=== PATIENT | male | born 1955 | race Caucasian/White ===

== ENCOUNTER 2017-05-13 02:31 | Emergency (ER) | payer MEDICAID ==
[2017-05-13] MEDS ORDERED: Ibuprofen TAB* 800 MG PO ONE (03:42)
[2017-05-13] MEDS ORDERED: Clindamycin CAP* 150 MG PO ONE (03:42)
[2017-05-13 04:09] VITALS: BP 157/91
--- NOTE | 2017-05-28 05:40 | ED ---
Gume Carroll Tecjoon scribed for Tye Malone MD on 05/13/17 at 0342 . Lower Extremity - HPI Summary HPI Summary: This patient is a 61 year old male presenting to [facility] with a chief complaint of right knee pain since yesterday. Patient states that he accidentally stuck his knee with a maggie nail. Patient comes to the ED because he feels that it isn t getting better. The pain is rated 5/10 in severity. Symptoms aggravated by nothing. Symptoms alleviated by nothing. The patient treated sx with nothing [employer]. Patient denies fever. Patient has an UTD tetanus. - History of Current Complaint Chief Complaint: EDExtremityLower Stated Complaint: POSS FB IN RT KNEE Time Seen by Provider: 05/13/17 03:13 Hx Obtained From: Patient Mechanism Of Injury: Penetrating Trauma - nail Onset of Pain: Immediate Onset/Duration: Still Present Severity Currently: Moderate Pain Intensity: 5 Pain Scale Used: 0-10 Numeric Timing: Constant Location: Is Discrete @ - right knee Associated Signs And Symptoms: Positive: Negative - fever Aggravating Factor(s): Nothing Alleviating Factor(s): Nothing - Allergies/Home Medications Allergies/Adverse Reactions: Allergies Allergy/AdvReac Type Severity Reaction Status Date / Time No Known Allergies Allergy Verified 05/13/17 02:35 PMH/Surg Hx/FS Hx/Imm Hx Previously Healthy: No Endocrine/Hematology History: Reports: Hx Diabetes - took metaformin, lost weight and resolved Cardiovascular History: Denies: Hx Hypertension Opthamlomology History: Denies: Hx Legally Blind EENT History: Denies: Hx Deafness Infectious Disease History: No Infectious Disease History: Denies: Traveled Outside the [place] in Last 30 Days - Family History Known Family History: Positive: Diabetes - Social History Alcohol Use: Occasionally Hx Substance Use: No Substance Use Type: Reports: None Hx Tobacco Use: Yes Smoking Status (MU): Former Smoker Review of Systems Negative: Fever Positive: Other - right knee pain Positive: Other - abrasion to right knee All Other Systems Reviewed And Are Negative: Yes Physical Exam - Summary Physical Exam Summary: VITAL SIGNS: Reviewed. GENERAL: Patient is a well-developed and nourished male who is lying comfortable in the stretcher. Patient is not in any acute respiratory distress. HEAD AND FACE: No signs of trauma. No ecchymosis, hematomas or skull depressions. No sinus tenderness. EYES: PERRLA, EOMI x 2, No injected conjunctiva, no nystagmus. EARS: Hearing grossly intact. Ear canals and tympanic membranes are within normal limits. MOUTH: Oropharynx within normal limits. NECK: Supple, trachea is midline, no adenopathy, no JVD, no carotid bruit, no c- spine tenderness, neck with full ROM. CHEST: Symmetric, no tenderness at palpation LUNGS: Clear to auscultation bilaterally. No wheezing or crackles. CVS: Regular rate and rhythm, S1 and S2 present, no murmurs or gallops appreciated. ABDOMEN: Soft, non-tender. No signs of distention. No rebound no guarding, and no masses palpated. Bowel sounds are normal. EXTREMITIES: Redness swelling and tenderess over right distal thigh and knee NEURO: Alert and oriented x 3. No acute neurological deficits. Speech is normal and follows commands. SKIN: Dry and warm Triage Information Reviewed: Yes Vital Signs On Initial Exam: Initial Vitals Temp Pulse Resp BP Pulse Ox 97.7 F 88 15 179/95 97 05/13/17 02:33 05/13/17 02:33 05/13/17 02:33 05/13/17 02:33 05/13/17 02:33 Vital Signs Reviewed: Yes Diagnostics - Vital Signs Vital Signs Temp Pulse Resp BP Pulse Ox 05/13/17 02:33 97.7 F 88 15 179/95 97 - Laboratory Lab Statement: Any lab studies that have been ordered have been reviewed, and results considered in the medical decision making process. Lower Extremity Course/Dx - Course Course Of Treatment: This patient is a 61 year old male presenting to [facility] with a chief complaint of right knee pain since yesterday. Patient states that he accidentally stuck his knee with a maggie nail. In the ED course the patient was given clindamycin, ibuprofen. Patient will be discharged with a diagnosis of cellulitis. Patient is advised to follow up with PCP in 3 days. The patient is agreeable with this plan. - Diagnoses Provider Diagnoses: Cellulitis Discharge - Sign-Out/Discharge Documenting (check all that apply): Discharge - Discharge Plan Condition: Stable Disposition: HOME Prescriptions: Clindamycin Cap(NF) [Clindamycin Cap 300 mg Cap(NF)] 300 mg PO Q6H #30 cap Ibuprofen TAB* [Motrin TAB* 800 MG] 800 mg PO Q6H PRN #30 tab PRN Reason: Pain Patient Education Materials: Cellulitis (ED) Referrals: Steve Torres MD [Primary Care Provider] - 3 Days Additional Instructions: Return to ED for any new or worsening symptoms. The documentation as recorded by the Gume knapp Tecjoon accurately reflects the service I personally performed and the decisions made by , Tye Malone MD.
== END 2017-05-13 04:08 | disposition home or self-care (01) ==
LOC: ED 02:31
DX: L03.115 Cellulitis of right lower limb (principal); M25.561 Pain in right knee; Z87.891 Personal history of nicotine dependence; S80.211A Abrasion, right knee, initial encounter; X58.XXXA Exposure to other specified factors, initial encounter; Y92.9 Unspecified place or not applicable
CPT/HCPCS: 99282; A9270-GY